=== PATIENT | female | born 1965 | race Caucasian/White ===

== ENCOUNTER 2017-05-02 11:27 | Emergency (ER) | payer OTHER ==
[~2017-05-02] VITALS: Ht 152.4 cm; Wt 97.5 kg
[~2017-05-02 11:27] MED LIST: AUGMENTIN 875 M1 TAB PO; BACTRIM DS 8001 TA1 PO; CEPHALEXIN500 M1 PO; CIPRO500 MG PO; CIPROFLOXACIN500 MG PO; CLINDAMYCIN HC300 MG PO; HYDROCODONE BIT1 T11 PO; PAXIL10 MG PO; TRAZODO50 MG PO; VICODIN 500 MG-1 TAB PO; XANAX0.5 MG PO; ZOLOFT100 MG PO
[2017-05-02] MEDS ORDERED: METFORMIN500 MG PO (11:53)
[2017-05-02] MEDS ORDERED: LIPITOR20 MG PO (11:53)
[2017-05-02] MEDS ORDERED: GLUCOTROL10 MG PO (11:53)
[2017-05-02 16:07] VITALS: BP 115/71
[2017-05-02] MEDS ORDERED: CYCLOBENZAPRINE5 M3 PO (16:12)
[2017-05-02] MEDS ORDERED: Motrin,Rufen800 MG PO (16:12)
== END 2017-05-02 16:19 | disposition home or self-care (01) ==
LOC: ED 11:27
DX: S29.012A Strain of muscle and tendon of back wall of thorax, initial encounter (principal); S39.012A Strain of muscle, fascia and tendon of lower back, initial encounter; Z98.890 Other specified postprocedural states; Z79.899 Other long term (current) drug therapy; W00.0XXA Fall on same level due to ice and snow, initial encounter; Y93.89 Activity, other specified; Y92.89 Other specified places as the place of occurrence of the external cause; Y99.9 Unspecified external cause status

== ENCOUNTER → 2017-05-25 | Outpatient (CLI) | payer OTHER ==
[~2017-05-25] MED LIST changes: +CYCLOBENZAPRINE5 M3 PO; +GLUCOTROL10 MG PO; +LIPITOR20 MG PO; +METFORMIN500 MG PO; +Motrin,Rufen800 MG PO
[2017-05-25 10:06] LABS: BASO % 0.4 % (0.0-1.0); EOS # 0.2 10*3/uL (0.0-0.4); EOS % 2.2 % (1.0-4.0); HEMATOCRIT 47.4 % (37.0-47.0); LYMPH # 2.7 10*3/uL (1.3-4.4); LYMPH % 27.1 % (27.0-41.0); MEAN CELL VOLUME 90.8 fl (81.0-99.0); MEAN CORPUSCULAR HGB 30.7 pg (27.0-31.0); MEAN CORPUSCULAR HGB CONC 33.8 g/dl (33.0-37.0); MEAN PLATELET VOLUME 9.9 fl (9.6-12.3); MONO # 0.5 10*3/uL (0.1-1.0); MONO % 5.1 % (3.0-9.0); NEUT # 6.6 10*3/uL (2.3-7.9); NEUT % 64.8 % (47.0-73.0); PLATELET COUNT AUTOMATED 246 10*3/uL (130-400); RED BLOOD COUNT 5.22 10*6/uL (4.10-5.10); RED CELL DISTRI WIDTH 13.8 % (0-14.5); WHITE BLOOD COUNT 10.1 10*3/uL (4.8-10.8)
[2017-05-25 10:37] LABS: ALKALINE PHOSPHATASE 90 U/L (45-117); BUN 14 mg/dl (7-24); CHLORIDE 101 mmol/L (98-107); CHOLESTEROL 214 mg/dL (<200); CREATININE 1.07 mg/dL (0.55-1.02); HDL CHOLESTEROL 38 mg/dl (40-60); LDL CHOLESTEROL 106 mg/dL (9-159); SGOT/AST 13 IU/L (3-35); SGPT/ALT 24 U/L (12-78); SODIUM 139 mmol/L (136-145); TOTAL PROTEIN 7.1 gm/dL (6.4-8.2); TRIGLYCERIDES 351 mg/dl (<150); VLDL CHOLESTEROL 70 mg/dL (6-40)
== END | disposition home or self-care (01) ==
LOC: LAB 09:34
PROVIDERS: Nurse Practitioner Family
DX: E66.9 Obesity, unspecified (principal); E11.9 Type 2 diabetes mellitus without complications

== ENCOUNTER 2017-07-08 06:51 | Emergency (ER) | payer OTHER ==
[~2017-07-08] VITALS: Wt 97.5 kg
[2017-07-08 06:51] VITALS: BP 118/66
[2017-07-08] MEDS ORDERED: HUMALOG100 UNIT/2 SQ (06:59)
[2017-07-08] MEDS ORDERED: TOUJEO SOL300 UNIT/1 SQ (06:59)
== END 2017-07-08 08:02 | disposition home or self-care (01) ==
LOC: ED 06:51
DX: J06.9 Acute upper respiratory infection, unspecified (principal); R05 Cough; Z79.4 Long term (current) use of insulin; Z79.899 Other long term (current) drug therapy

== ENCOUNTER 2018-06-27 16:39 | Emergency (ER) | payer SELFPAY ==
[~2018-06-27] VITALS: Ht 152.4 cm; Wt 94.3 kg
[~2018-06-27 16:39] MED LIST changes: +HUMALOG100 UNIT/2 SQ; +TOUJEO SOL300 UNIT/1 SQ
[2018-06-27 16:41] VITALS: BP 129/69
[2018-06-27] MEDS ORDERED: IBUPROFEN600 MG PO (18:22)
== END 2018-06-27 18:33 | disposition home or self-care (01) ==
LOC: ED 16:39
DX: S83.91XA Sprain of unspecified site of right knee, initial encounter (principal); Z79.899 Other long term (current) drug therapy; X50.1XXA Overexertion from prolonged static or awkward postures, initial encounter; Y93.01 Activity, walking, marching and hiking; Y92.89 Other specified places as the place of occurrence of the external cause; Y99.8 Other external cause status

== ENCOUNTER 2018-08-26 06:20 | Emergency (ER) | payer SELFPAY ==
[~2018-08-26] VITALS: Ht 154.9 cm; Wt 91.2 kg
[~2018-08-26 06:20] MED LIST changes: +IBUPROFEN600 MG PO
[2018-08-26 06:23] VITALS: BP 145/79
[2018-08-26] MEDS ORDERED: PREDNISONE50 MG PO (07:18)
[2018-08-26] MEDS ORDERED: CYCLOBENZAPRINE10 MG PO (07:18)
== END 2018-08-26 07:27 | disposition home or self-care (01) ==
LOC: ED 06:20
DX: M54.41 Lumbago with sciatica, right side (principal); Z79.899 Other long term (current) drug therapy

== ENCOUNTER 2020-02-15 10:57 | Emergency (ER) | payer SELFPAY ==
[~2020-02-15] VITALS: Wt 88.5 kg
[~2020-02-15 10:57] MED LIST changes: +CYCLOBENZAPRINE10 MG PO; +PREDNISONE50 MG PO
[2020-02-15 11:11] VITALS: BP 154/87
[2020-02-15 11:25] LABS: BASO # 0.1 10*3/uL (0.0-0.1); BASO % 0.7 % (0.0-1.0); EOS # 0.1 10*3/uL (0.0-0.4); EOS % 0.8 % (1.0-4.0); HEMATOCRIT 47.7 % (37.0-47.0); LYMPH # 1.9 10*3/uL (1.3-4.4); LYMPH % 22.4 % (27.0-41.0); MEAN CELL VOLUME 90.9 fl (81.0-99.0); MEAN CORPUSCULAR HGB 30.7 pg (27.0-31.0); MEAN CORPUSCULAR HGB CONC 33.8 g/dl (33.0-37.0); MEAN PLATELET VOLUME 9.6 fl (9.6-12.3); MONO # 0.4 10*3/uL (0.1-1.0); MONO % 4.8 % (3.0-9.0); NEUT # 5.9 10*3/uL (2.3-7.9); NEUT % 70.9 % (47.0-73.0); PLATELET COUNT AUTOMATED 255 10*3/uL (130-400); RED BLOOD COUNT 5.25 10*6/uL (4.10-5.10); RED CELL DISTRI WIDTH 13.3 % (0-14.5); WHITE BLOOD COUNT 8.3 10*3/uL (4.8-10.8)
[2020-02-15 11:37] LABS: ACT PARTIAL THROMBO TIME 27.5 SECONDS (20.0-32.1); INTERNATIONAL NORM RATIO 0.9 (2.0-3.5)
[2020-02-15 11:43] LABS: ALBUMIN 3.8 gm/dl (3.1-4.5); ALKALINE PHOSPHATASE 74 U/L (45-117); BUN 22 mg/dl (7-24); CHLORIDE 106 mmol/L (98-107); CREATININE 1.37 mg/dL (0.55-1.02); POTASSIUM 3.6 mmol/L (3.5-5.1); SGOT/AST 18 IU/L (3-35); SGPT/ALT 36 U/L (12-78); SODIUM 138 mmol/L (136-145)
[2020-02-15 11:45] LABS: TROPONIN I < 0.015 ng/ml (<0.045)
== END 2020-02-15 15:22 | disposition home or self-care (01) ==
LOC: ED 10:57
PROVIDERS: Family Medicine
DX: R07.9 Chest pain, unspecified (principal); E11.9 Type 2 diabetes mellitus without complications; Z79.899 Other long term (current) drug therapy; Z79.4 Long term (current) use of insulin

== ENCOUNTER 2020-06-13 18:29 | Emergency (ER) | payer SELFPAY ==
[~2020-06-13] VITALS: Ht 154.9 cm; Wt 83.5 kg
[2020-06-13 18:47] VITALS: BP 134/70
[2020-06-13 20:05] LABS: BASO % 0.1 % (0.0-1.0); HEMATOCRIT 43.8 % (37.0-47.0); LYMPH # 0.8 10*3/uL (1.3-4.4); LYMPH % 11.2 % (27.0-41.0); MEAN CELL VOLUME 91.8 fl (81.0-99.0); MEAN CORPUSCULAR HGB 30.8 pg (27.0-31.0); MEAN CORPUSCULAR HGB CONC 33.6 g/dl (33.0-37.0); MEAN PLATELET VOLUME 9.8 fl (9.6-12.3); MONO # 0.3 10*3/uL (0.1-1.0); MONO % 4.8 % (3.0-9.0); NEUT % 83.6 % (47.0-73.0); PLATELET COUNT AUTOMATED 177 10*3/uL (130-400); RED BLOOD COUNT 4.77 10*6/uL (4.10-5.10); RED CELL DISTRI WIDTH 13.8 % (0-14.5); WHITE BLOOD COUNT 7.2 10*3/uL (4.8-10.8)
[2020-06-13 20:21] LABS: ALBUMIN 2.8 gm/dl (3.1-4.5); CREATININE 1.4 mg/dL (0.55-1.02); POTASSIUM 4.2 mmol/L (3.5-5.1); TOTAL PROTEIN 7.4 gm/dL (6.4-8.2)
[2020-06-13 21:43] LABS: BILIRUBIN Negative (Negative); BLOOD 1+ (Negative); CLARITY Clear (Clear); COLOR Yellow (Yellow); GLUCOSE Negative (Negative); KETONE Trace (Negative); LEUKO ESTERASE Negative (Negative); NITRITE Negative (Negative); SPECIFIC GRAVITY 1.025 (1.001-1.030); UROBILINOGEN 0.2 E.U./dl (0.0-1.0)
[2020-06-13 22:00] LABS: BACTERIA TRACE; WBC 0-2 wbc/hpf (0-5)
[2020-06-14] MEDS ORDERED: ZITHROMAX250 MG PO (01:22)
== END 2020-06-14 01:29 | disposition home or self-care (01) ==
LOC: ED 18:29
PROVIDERS: Emergency Medicine
DX: U07.1 COVID-19 (principal); J12.82 Pneumonia due to coronavirus disease 2019; E11.9 Type 2 diabetes mellitus without complications; I10 Essential (primary) hypertension; F41.9 Anxiety disorder, unspecified; D32.9 Benign neoplasm of meninges, unspecified; F17.200 Nicotine dependence, unspecified, uncomplicated; Z79.899 Other long term (current) drug therapy

== ENCOUNTER → 2022-04-03 | Outpatient (CLI) | payer BC ==
[~2022-04-03] MED LIST changes: +ZITHROMAX250 MG PO
== END | disposition home or self-care (01) ==
LOC: MAMMO 15:30
PROVIDERS: ATTEND Nurse Practitioner Family
DX: Z12.31 Encounter for screening mammogram for malignant neoplasm of breast (principal)

== ENCOUNTER 2022-08-25 07:18 | Emergency (ER) | payer BC ==
[~2022-08-25] VITALS: Wt 86.2 kg
[2022-08-25 07:28] VITALS: BP 164/86
[2022-08-25] MEDS ORDERED: TRULICITY3 MG/0.5 M SQ (07:43)
[2022-08-25] MEDS ORDERED: CITALOPRAM20 MG PO (07:44)
[2022-08-25] MEDS ORDERED: LANTUS SOL100 UNIT/1 SC (07:44)
[2022-08-25] MEDS ORDERED: METFORMIN XR500 MG PO (07:45)
[2022-08-25 07:50] LABS: BASO # 0.1 10*3/uL (0.0-0.1); BASO % 0.4 % (0.0-1.0); EOS # 0.3 10*3/uL (0.0-0.4); EOS % 1.7 % (1.0-4.0); HEMATOCRIT 44.9 % (37.0-47.0); LYMPH # 1.4 10*3/uL (1.3-4.4); LYMPH % 9.7 % (27.0-41.0); MEAN CORPUSCULAR HGB 31.9 pg (27.0-31.0); MEAN CORPUSCULAR HGB CONC 34.3 g/dl (33.0-37.0); MEAN PLATELET VOLUME 9.3 fl (9.6-12.3); MONO # 0.8 10*3/uL (0.1-1.0); MONO % 5.5 % (3.0-9.0); NEUT # 12.2 10*3/uL (2.3-7.9); NEUT % 82.2 % (47.0-73.0); PLATELET COUNT AUTOMATED 246 10*3/uL (130-400); RED BLOOD COUNT 4.83 10*6/uL (4.10-5.10); RED CELL DISTRI WIDTH 13.1 % (0-14.5); WHITE BLOOD COUNT 14.9 10*3/uL (4.8-10.8)
[2022-08-25 08:11] LABS: POTASSIUM 4.3 mmol/L (3.4-5.1); TOTAL PROTEIN 6.8 gm/dL (6.0-8.0)
[2022-08-25 09:36] LABS: BILIRUBIN Negative (Negative); BLOOD 2+ (Negative); CLARITY Clear (Clear); COLOR Yellow (Yellow); GLUCOSE 2+ (Negative); KETONE Negative (Negative); LEUKO ESTERASE Negative (Negative); NITRITE Negative (Negative); PH 5.5 (4.5-8.0); SPECIFIC GRAVITY 1.015 (1.001-1.030); UROBILINOGEN 0.2 E.U./dl (0.0-1.0)
[2022-08-25] MEDS ORDERED: LEVOFLOXACIN750 M2 PO (09:42)
[2022-08-25 09:47] LABS: BACTERIA 1+; EPITHELIAL CELLS 0-2
== END 2022-08-25 10:00 | disposition home or self-care (01) ==
LOC: ED 07:18
PROVIDERS: Student in an Organized Health Care Education/Training Program
DX: N13.2 Hydronephrosis with renal and ureteral calculous obstruction (principal); Z79.899 Other long term (current) drug therapy; Z90.49 Acquired absence of other specified parts of digestive tract; Z98.51 Tubal ligation status

== ENCOUNTER → 2024-02-17 | Outpatient (CLI) | payer OTHER, BC ==
[~2024-02-17] MED LIST changes: +CITALOPRAM20 MG PO; +LANTUS SOL100 UNIT/1 SC; +LEVOFLOXACIN750 M2 PO; +METFORMIN XR500 MG PO; +TRULICITY3 MG/0.5 M SQ
== END | disposition home or self-care (01) ==
LOC: RAD 09:52
PROVIDERS: ATTEND Family Medicine
DX: M25.531 Pain in right wrist (principal); M25.511 Pain in right shoulder; M25.521 Pain in right elbow

== ENCOUNTER → 2024-04-14 | Outpatient (CLI) | payer BC ==
[2024-04-14 15:50] LABS: BILIRUBIN Negative (Negative); BLOOD 1+ (Negative); CLARITY Cloudy (Clear); COLOR Yellow (Yellow); GLUCOSE 3+ (Negative); KETONE Negative (Negative); LEUKO ESTERASE Negative (Negative); NITRITE Negative (Negative); SPECIFIC GRAVITY >= 1.030 (1.001-1.030); UROBILINOGEN 0.2 E.U./dl (0.0-1.0)
[2024-04-14 16:14] LABS: POTASSIUM 3.8 mmol/L (3.4-5.1); TOTAL PROTEIN 7.5 gm/dL (6.0-8.0)
[2024-04-14 16:16] LABS: VITAMIN D, 25-HYDROXY 28.9 ng/mL (30-100)
[2024-04-14 16:57] LABS: BACTERIA 2+; EPITHELIAL CELLS TNTC; WBC 0-2 wbc/hpf (0-5)
== END | disposition home or self-care (01) ==
LOC: US 04-13 15:00 → LAB 14:49 → US 15:00
PROVIDERS: ATTEND Internal Medicine Nephrology
DX: N20.0 Calculus of kidney (principal); N18.32 Chronic kidney disease, stage 3b; R80.1 Persistent proteinuria, unspecified; R31.1 Benign essential microscopic hematuria; D63.8 Anemia in other chronic diseases classified elsewhere; E83.9 Disorder of mineral metabolism, unspecified

== ENCOUNTER → 2024-06-03 | Outpatient (CLI) | payer BC | END | disposition home or self-care (01) | LOC: CT 14:46 | PROVIDERS: ATTEND Urology | DX: N20.0 Calculus of kidney (principal); K57.30 Diverticulosis of large intestine without perforation or abscess without bleeding; R31.9 Hematuria, unspecified; K42.9 Umbilical hernia without obstruction or gangrene; M47.814 Spondylosis without myelopathy or radiculopathy, thoracic region; Z90.49 Acquired absence of other specified parts of digestive tract ==

== ENCOUNTER → 2024-07-08 | Outpatient (CLI) | payer BC ==
[2024-07-08 11:36] LABS: BASO # 0.1 10*3/uL (0.0-0.1); BASO % 0.7 % (0.0-1.0); EOS # 0.4 10*3/uL (0.0-0.4); HEMATOCRIT 49.9 % (37.0-47.0); MEAN CELL VOLUME 95.8 fl (81.0-99.0); MEAN CORPUSCULAR HGB 31.3 pg (27.0-31.0); MEAN CORPUSCULAR HGB CONC 32.7 g/dl (33.0-37.0); MEAN PLATELET VOLUME 9.4 fl (9.6-12.3); MONO # 0.7 10*3/uL (0.1-1.0); MONO % 5.2 % (3.0-9.0); NEUT # 9.9 10*3/uL (2.3-7.9); NEUT % 73.1 % (47.0-73.0); PLATELET COUNT AUTOMATED 315 10*3/uL (130-400); RED BLOOD COUNT 5.21 10*6/uL (4.10-5.10); RED CELL DISTRI WIDTH 13.7 % (0-14.5); WHITE BLOOD COUNT 13.5 10*3/uL (4.8-10.8)
[2024-07-08 11:58] LABS: POTASSIUM 4.4 mmol/L (3.4-5.1); TOTAL PROTEIN 8.1 gm/dL (6.0-8.0)
[2024-07-08 14:07] LABS: BILIRUBIN Negative (Negative); BLOOD 1+ (Negative); CLARITY Turbid (Clear); COLOR Yellow (Yellow); GLUCOSE 3+ (Negative); KETONE Negative (Negative)
[2024-07-08 14:08] LABS: LEUKO ESTERASE Trace (Negative); NITRITE Negative (Negative); UROBILINOGEN 0.2 E.U./dl (0.0-1.0)
[2024-07-08 14:09] LABS: BACTERIA 4+; EPITHELIAL CELLS TNTC; RBC 16-20 rbc/hpf (0-2); WBC 41-50 wbc/hpf (0-5)
== END | disposition home or self-care (01) ==
LOC: LAB 03:32 → US 11:00 → LAB 11:00
PROVIDERS: ATTEND Urology
DX: K76.0 Fatty (change of) liver, not elsewhere classified (principal); K44.9 Diaphragmatic hernia without obstruction or gangrene; R93.89 Abnormal findings on diagnostic imaging of other specified body structures; R31.9 Hematuria, unspecified; Z90.49 Acquired absence of other specified parts of digestive tract; Z87.442 Personal history of urinary calculi

== ENCOUNTER → 2024-12-26 | Outpatient (CLI) | payer BC | END | disposition home or self-care (01) | LOC: US 00:24 | PROVIDERS: ATTEND Nurse Practitioner Women's Health | DX: N88.8 Other specified noninflammatory disorders of cervix uteri (principal); Z01.419 Encounter for gynecological examination (general) (routine) without abnormal findings ==

== ENCOUNTER → 2025-01-12 | Outpatient (CLI) | payer BC | END | disposition home or self-care (01) | LOC: MAMMO 15:17 | PROVIDERS: ATTEND Nurse Practitioner Women's Health | DX: Z12.31 Encounter for screening mammogram for malignant neoplasm of breast (principal) ==

== ENCOUNTER → 2025-02-10 | Outpatient (CLI) | payer BC | END | disposition home or self-care (01) | LOC: MAMMO 07:52 | PROVIDERS: ATTEND Nurse Practitioner Women's Health | DX: N63.15 Unspecified lump in the right breast, overlapping quadrants (principal); N64.89 Other specified disorders of breast; R92.311 Mammographic fatty tissue density, right breast; R92.8 Other abnormal and inconclusive findings on diagnostic imaging of breast ==